=== PATIENT | female | born 1950 | race Asian ===

== ENCOUNTER 2017-06-28 06:44 | Day surgery (SDC) | payer BC ==
[2017-06-27 12:06] VITALS: BMI 27.8
[2017-06-28] MEDS ORDERED: SUCCINYLCHOLINE CHLORIDE 200 MG/10 ML VIAL ONE (07:40)
[2017-06-28] MEDS ORDERED: GLYCOPYRROLATE 0.2 MG/1 ML VIAL ONE (07:40)
[2017-06-28] MEDS ORDERED: PROPOFOL 20 ML ONE ×12 (07:40→07:45)
[2017-06-28] MEDS ORDERED: ePHEDrine SULFATE 50 MG/1 ML AMPULE ONE (07:40)
[2017-06-28] MEDS ORDERED: PHENYLEPHRINE HCL 10 MG/1 ML SINGLE DOSE VIAL ONE (07:41)
[2017-06-28 08:31] VITALS: TEMP 97.8
[2017-06-28 09:42] VITALS: BP 106/59; PULSE 81
--- NOTE | 2017-07-01 16:44 | PATH ---
Surgical Pathology Report Patient Name: ISABEL WILSON [facility]. Rec. #: [id number] /Age/Gender: 1950 (Age: 66) / F Account: [id number] Location: U-ENDOSCOPY Taken: 06/28/2017 Received: 06/28/2017 Reported: 07/01/2017 Physicians: Kendell Shukla M.D. Specimen(s) Received CECAL POLYP Clinical History Colon cancer screening, history of polyps Cecal polyp, diverticulosis, hemorrhoids Final Diagnosis COLON, CECUM, POLYP, POLYPECTOMY: TUBULAR ADENOMA. Electronically Signed Marek Martinez M.D. Gross Description Received in formalin, labeled "cecal polyp" is a banerjee, irregular portion of soft tissue measuring 0.3 cm in greatest dimension. The specimen is submitted in toto in one cassette. 06/28/201706/28/2017
== END 2017-06-28 10:08 | disposition home or self-care (01) ==
LOC: JASU-ENDO 06:44
PROVIDERS: ATTEND Internal Medicine Gastroenterology
PROC: 0DBH8ZX Excision of Cecum, Via Natural or Artificial Opening Endoscopic, Diagnostic (ICD-10-PCS; principal; 2017-06-28 08:00)
DX: Z86.010 Personal history of colon polyps (principal); D12.0 Benign neoplasm of cecum; I10 Essential (primary) hypertension; E78.5 Hyperlipidemia, unspecified; E03.9 Hypothyroidism, unspecified; E11.9 Type 2 diabetes mellitus without complications; Z79.4 Long term (current) use of insulin; K57.30 Diverticulosis of large intestine without perforation or abscess without bleeding; K64.8 Other hemorrhoids
CPT/HCPCS: 88305-TC